=== PATIENT | female | born 1950 | race Caucasian/White ===

== ENCOUNTER 2023-11-21 08:43 | Emergency (ER) | payer MEDICARE, MEDICAID ==
[~2023-11-21] VITALS: Ht 160 cm; Wt 65.0 kg
[2023-11-21 08:44] VITALS: TEMP 98.6; O2SAT 99
[2023-11-21] MEDS: ONDANSETRON HCL 4MG/2ML INJ IV STA (09:36)
[2023-11-21 09:41] LABS: BASOPHILS % 0.6 % (0.0-2.0); EOSINOPHILS % 2.1 % (0.0-5.0); HEMATOCRIT. 36.3 % (36.0-48.0); HEMOGLOBIN. 12.1 g/dL (12.0-16.0); LYMPHOCYTES % 21.4 % (20.0-50.0); MEAN CORPUSCULAR HEMOGLOBIN 29.4 pg (28.0-32.0); MEAN CORPUSCULAR HGB CONC 33.5 g/dL (31.0-37.0); MEAN CORPUSCULAR VOLUME 87.9 fL (81.0-99.0); MEAN PLATELET VOLUME 7.6 fl (7.4-10.4); MONOCYTES % 7.6 % (2.0-8.0); NEUTROPHILS % 68.3 % (40.0-76.0); PLATELET 331 x1000/uL (130-400); RED BLOOD CELL COUNT 4.13 mill/uL (4.2-5.4); RED CELL DISTRIBUTION WIDTH 13.2 % (11.6-14.6); WHITE BLOOD COUNT 9.2 x1000/uL (4.5-11.0)
[2023-11-21 09:47] LABS: CHLORIDE 109 mEq/L (98-107); POTASSIUM 3.9 mEq/L (3.5-5.1); SODIUM 140 mEq/L (136-145)
[2023-11-21 09:48] LABS: CALCIUM 8.9 mg/dL (8.7-10.4); CARBON DIOXIDE 27 mEq/L (21-32)
[2023-11-21 09:53] LABS: CREATININE 0.8 mg/dL (0.6-1.0); GLUCOSE 85 mg/dL (70-105); UREA NITROGEN BLOOD 12 mg/dL (9-23)
[2023-11-21] MEDS: MECLIZINE 25MG TABLET PO ONE (10:00)
[2023-11-21] MEDS: SODIUM CHLORIDE 0.9% 1,000 ML IV ONE (10:03)
[2023-11-21] MEDS: KETOROLAC 15MG/ML VIAL IV ONE (10:07)
[2023-11-21] MEDS ORDERED: MECL-299 MT (13:03)
[2023-11-21 13:42] VITALS: BP 121/67; PULSE 67; RESP 15
== END 2023-11-21 14:26 | disposition home or self-care (01) ==
LOC: ER 09:03
DX: R42 Dizziness and giddiness (principal); R11.0 Nausea; R06.02 Shortness of breath; Z86.73 Personal history of transient ischemic attack (TIA), and cerebral infarction without residual deficits
CPT/HCPCS: 99285; 96374; 96361; 96375; 80048; 85025; 85610; 36415; 93005; J8597; J1885; J2405; J7030

== ENCOUNTER 2023-11-28 08:47 | Emergency (ER) | payer MEDICARE, MEDICAID ==
[~2023-11-28] VITALS: Ht 165.1 cm; Wt 64.0 kg
[~2023-11-28 08:47] MED LIST: MECL-299 MT
[2023-11-28 08:52] VITALS: BP 110/60; PULSE 82; RESP 16; TEMP 97.8; O2SAT 98
[2023-11-28 09:42] LABS: CLARITY URINE TURBID (CLEAR); COLOR URINE DARK YELLOW (YELLOW); GLUCOSE URINE NEGATIVE (NEGATIVE); KETONES URINE 1+ (NEGATIVE); LEUKOCYTE ESTERASE URINE 3+ (NEGATIVE); NITRITE URINE POSITIVE (NEGATIVE); OCCULT BLOOD URINE 3+ (NEGATIVE); PROTEIN URINE 3+ (NEGATIVE); SPECIFIC GRAVITY URINE 1.017 (1.005-1.030)
[2023-11-28] MEDS: ACETAMINOPHEN 325MG TABLET PO STA (09:42)
[2023-11-28] MEDS: ONDANSETRON 4MG ODT PO STA (09:42)
[2023-11-28] MEDS: KETOROLAC 30MG/ML VIAL IM STA (09:42)
[2023-11-28 09:43] LABS: BASOPHILS % 0.4 % (0.0-2.0); EOSINOPHILS % 0.8 % (0.0-5.0); HEMATOCRIT. 44.8 % (36.0-48.0); HEMOGLOBIN. 14.3 g/dL (12.0-16.0); MEAN CORPUSCULAR HEMOGLOBIN 28.1 pg (28.0-32.0); MEAN PLATELET VOLUME 7.5 fl (7.4-10.4); MONOCYTES % 7.5 % (2.0-8.0); NEUTROPHILS % 75.3 % (40.0-76.0); PLATELET 449 x1000/uL (130-400); WHITE BLOOD COUNT 12.9 x1000/uL (4.5-11.0)
[2023-11-28 09:46] LABS: BACTERIA URINE 4+; RBC URINE 50-100 /hpf (0-2); WBC URINE TNTC /hpf (0-2); YEAST URINE NONE SEEN
[2023-11-28 09:48] LABS: SQUAMOUS EPITHELIAL CELL URINE 1+ /lpf (RARE/1+); TRIPLE PHOSPHATE CRYSTAL URINE 2+ /lpf
[2023-11-28 09:53] LABS: POTASSIUM 3.9 mEq/L (3.5-5.1)
[2023-11-28 09:54] LABS: CALCIUM 9.4 mg/dL (8.7-10.4)
[2023-11-28] MEDS ORDERED: CEPH500C2 MT (10:21)
[2023-11-28] MEDS: CEPHALEXIN 250MG CAPSULE PO ONE (10:34)
[2023-11-28] MEDS: ONDANSETRON 4MG ODT PO ONE (11:15)
== END 2023-11-28 10:45 | disposition home or self-care (01) ==
LOC: ER 09:04
DX: N39.0 Urinary tract infection, site not specified (principal); I10 Essential (primary) hypertension; Z86.73 Personal history of transient ischemic attack (TIA), and cerebral infarction without residual deficits
CPT/HCPCS: 99284; 80048; 81003; 83690; 85025; 87086; 36415; 96372; Q0162; J1885